=== PATIENT | male | born 1950 | race Caucasian/White ===

== ENCOUNTER 2019-02-23 12:32 | Outpatient (CLI) | payer MEDICARE ==
[2019-02-23 14:46] LABS: #Basophils 0.1 thou/uL (0.0-0.2); #Eosinphils 0.1 thou/uL (0.0-0.7); #Lymphocytes 2.5 thou/uL (1.20-3.40); #Monocytes 0.8 thou/uL (0.11-0.59); #Neutrophils 4.2 thou/uL (1.40-6.50); %Basophils 1.6 % (0.0-1.0); %Eosinophils 1.9 % (0.0-10.0); %Lymphocytes 32.3 % (21.0-51.0); %Monocytes 10.2 % (0.0-10.0); %Neutrophils 54.1 % (42.0-75.0); Mean Corpuscular HGB CONC 32.2 g/dL (32.0-36.0); Mean Corpuscular Hemoglobin 30.7 pg (27.0-31.0); Mean Corpuscular Volume 95.4 fL (78.0-98.0); Mean Platelet Volume 7.4 fL (7.4-10.4); Platelet Count 304 thou/uL (130-400); RBC Distribution Width 12.4 % (11.5-14.5); Red Blood Cell (RBC) Count 4.55 mill/uL (4.70-6.10); White Blood Cell (WBC) Count 7.7 thou/uL (4.8-10.8)
[2019-02-23 15:01] LABS: Prothrombin Time 13.4 SEC (12.0-14.7)
[2019-02-23 15:12] LABS: Anion Gap 13 mmol/L (10-20); BUN (Urea Nitrogen) 15 mg/dL (8.4-25.7); Calc. Creatinine Clearance 0 mL/min (70-130); Calcium 9.5 mg/dL (7.8-10.44); Carbon Dioxide 25 mmol/L (23-31); Chloride 105 mmol/L (98-107); Estimated GFR-MDRD 68; Glucose 78 mg/dL (80-115); Potassium 3.8 mmol/L (3.5-5.1); Sodium 139 mmol/L (136-145)
[2019-02-23 17:41] LABS: Bacteria/HPF None Seen HPF (None Seen); Bilirubin Negative (Negative); Blood, Urine Negative (Negative); Clarity Clear (Clear); Glucose, Urine (Dipstick) Normal (Negative); Leukocyte Negative Leu/uL (Negative); Nitrite Negative (Negative); Protein, Urine (Dipstick) Negative (Neg-Trace); RBC/HPF 0-3 HPF (0-3); Squamous Epithelial None Seen HPF (0-3); Urobilinogen Normal mg/dL (Less than 2); WBC/HPF 0-3 HPF (0-3)
== END 2019-02-23 12:33 | disposition home or self-care (01) ==
LOC: LABBT 12:32
PROVIDERS: ATTEND Orthopaedic Surgery
DX: Z01.818 Encounter for other preprocedural examination (principal); M16.11 Unilateral primary osteoarthritis, right hip
CPT/HCPCS: 80048; 81001; 85025; 85610; 87081; 93005; 93010

== ENCOUNTER 2019-02-23 13:15 | Inpatient (IN) | payer MEDICARE ==
[2019-02-28] MEDS ORDERED: Bupivacaine HCl 0.5%/Epinephrine 1:200,000/PF 30 ml Vial ONE (09:47)
[2019-02-28] MEDS ORDERED: Tranexamic Acid 1,000 MG/10 ML VIAL ONE (10:00)
[2019-02-28] MEDS ORDERED: Sodium Chloride 0.9% 100 ML ONE (10:00)
[2019-02-28] MEDS ORDERED: PROPOFOL 200 MG/20 ML VIAL ONE (10:35)
[2019-02-28] MEDS ORDERED: Ondansetron PF 4 MG/2 ML Vial ONE (10:35)
[2019-02-28] MEDS ORDERED: Rocuronium Bromide 10 MG/ML (10ML VIAL) ONE (10:35)
[2019-02-28] MEDS ORDERED: Lidocaine 1% PF 5 ML VIAL ONE (10:35)
[2019-02-28] MEDS ORDERED: Glycopyrrolate 0.2 MG/ML 5 ML SYRINGE ONE (10:35)
[2019-02-28] MEDS ORDERED: Midazolam HCl 2 mg/2 ml Vial ONE (10:46)
[2019-02-28] MEDS ORDERED: Fentanyl 100 MCG/2 ML VIAL ONE ×4 (10:46→15:46)
[2019-02-28] MEDS ORDERED: Dexamethasone 4 mg/ml Vial ONE (10:47)
[2019-02-28] MEDS ORDERED: diphenhydrAMINE 25 MG CAP PO PRN ×2 (12:53→15:55)
[2019-02-28] MEDS ORDERED: Ondansetron PF 4 MG/2 ML Vial IVP PRN ×2 (12:53→15:55)
[2019-02-28] MEDS ORDERED: Promethazine HCl 25 MG/ML VIAL IM PRN ×3 (12:53→15:55)
[2019-02-28] MEDS ORDERED: Acetaminophen 325 MG TAB PO PRN (12:53)
[2019-02-28] MEDS ORDERED: Zolpidem Tartrate 5 MG TAB PO PRN ×2 (12:53→15:55)
[2019-02-28] MEDS ORDERED: HYDROcodone/Acetaminophen 10/325 mg Tablet PO PRN ×2 (12:53)
[2019-02-28] MEDS ORDERED: Ondansetron HCl/PF 4 MG/2 ML Vial IVP PRN (15:01)
[2019-02-28] MEDS ORDERED: Promethazine HCl 25 MG/ML VIAL SLOW IVP PRN (15:01)
[2019-02-28] MEDS ORDERED: HYDROmorphone 2 MG/ML VIAL ONE (15:09)
--- NOTE | 2019-02-28 15:39 | OP ---
DATE OF PROCEDURE: 02/28/2019 PREOPERATIVE DIAGNOSIS: End-stage bicompartmental osteoarthritis, right hip. POSTOPERATIVE DIAGNOSIS: End-stage bicompartmental osteoarthritis, right hip. OPERATIVE PROCEDURE: Press-fit right total hip arthroplasty. SURGEON: Deandre Sterling MD DIRECTOR OF SPECIAL SERVICES: Enrico Hanson PA-C. ANESTHESIA: General via endotracheal tube, augmented with a peripheral fascia iliaca block. COMPONENTS USED: [facility] Accolade II size 7 press-fit hip stem with a titanium hemispherical cluster hole press-fit 56 mm acetabular shell, 10 degree polyethylene fixed bearing insert. A ceramic 36 mm femoral head with a -2.5 neck length. ESTIMATED BLOOD LOSS: 150 mL. FINDINGS: Severe degenerative bicompartmental disease, [id number]-ci-[id number] arthrosis, periarticular osteophyte formation, large serous effusion, hypertrophic synovium, hemarthrosis. DRAINS: None. COMPLICATIONS: None. COUNTS: Correct. SPECIMENS: None. INDICATION FOR SURGERY: Asaf is a 68-year-old white male who has had progressive right hip, groin, thigh pain and problems with standing, walking for the last five to seven years. He has failed conservative management and elected to proceed with total hip arthroplasty as definitive treatment for his pain. INPUT: 1500 crystalloid. OUTPUT: Not measured. No Wise placed. PROCEDURE IN DETAIL: After informed consent was obtained in the preoperative holding area, the patient was taken to the operative suite where general anesthesia was induced. The patient was then positioned in the lateral decubitus position. The hip was then prepped and draped in usual sterile fashion. The patient received preoperative antibiotics. Prior to incision, time-out was called and all members of the surgical team agreed upon site, surgeon, and patient. After this, a longitudinal incision was made directly over the trochanter, noted by palpation extending 2 fingerbreadths above and below the trochanter. The deeper subcutaneous layer was undermined with Bovie electrocautery. The iliotibial band was encountered and incised sharply and the plane below this was developed bluntly. A Charnley retractor was placed to hold this opened. The lateral aspect of the trochanter and the abductor muscles were encountered and then reflected anteriorly off the trochanter using Bovie electrocautery. Once this was completed, the anterior capsule was then encountered and identified and copious capsulotomy was carried out, exposing the femoral neck and head. Dislocation maneuver was then performed and an in situ provisional neck cut was then made using the oscillating saw. Attention was then turned to acetabular preparation and sequential reaming was carried out up to the appropriate diameter. A trial was then malleted into place with good firm resistance and no pullout. The permanent acetabular shell was then malleted squarely into place, as was the appropriate liner. Once completed, the wound was copiously irrigated and attention was then turned to femoral preparation. Flexion and external rotation were performed of the exposed thigh and femoral elevators were then placed at the proximal aspect of the wound. Canal finder was used to establish the length of the canal and sequential reaming was carried out, followed by broaching. Once the appropriate stability was established with the trial broaches with flexion, extension and rotational stability, we did trial with neutral and 2 mm offset incremental necks. Once the appropriate size was decided upon, with good stability noted with flexion, extension, internal and external rotation and shuck being negative, we removed the femoral trial broach and malletted into place the permanent prosthesis with good firm fit, which was also stable to rotation. Again, the hip felt very stable to flexion, extension, internal and external rotation. Leg lengths appeared near anatomic clinically and we were quite happy with prosthesis placement. Copious irrigation was then carried out through the entirety of the wound. Primary closure of the abductors was accomplished with interrupted #2 Vicryl [id number] stitches and the IT band was then closed with interrupted #2 Vicryl, oversewn with a #2 running barbed Quill stitch. Subcutaneous fascia was closed with running barbed Quill stitch and a subcuticular Monocryl barbed Quill stitch was used for skin closure and augmented with skin cement. A sterile dressing was applied. The procedure was terminated without any complication. All counts were correct. The patient was awakened in the operative suite and taken to the recovery room in stable condition. Job ID: [id number]
[2019-02-28] MEDS ORDERED: Naloxone HCl 0.4 mg/ml Vial IV PRN (15:55)
[2019-02-28] MEDS ORDERED: Morphine Sulfate 100 MG in Dextrose 5% in Water 98 ML IV SCH (15:55)
[2019-02-28] MEDS ORDERED: diphenhydrAMINE 50 MG/ML VIAL IM/IV PRN (15:55)
--- NOTE | 2019-02-28 17:46 | RAD ---
EXAM: XR Hip Rt 2-3 View PROVIDED CLINICAL HISTORY: Postop COMPARISON: 08/20/2018 FINDINGS: Interval postoperative changes of right hip arthroplasty. No evidence for an acute osseous abnormalit y. Postoperative soft tissue gas. IMPRESSION: As above.
[2019-02-28] MEDS: CEFAZOLIN 2 GM in Premix Bag 1 BAG IVPB SCH (20:04)
[2019-02-28] MEDS: Ferrous Gluconate 324 MG TAB PO SCH (20:04)
[2019-02-28] MEDS: Aspirin 81 mg Enteric Coated Tablet PO SCH (20:05)
[2019-02-28 22:24] VITALS: BMI 25.4
[2019-02-28] MEDS: Sodium Chloride 0.9% 1,000 ML IV SCH (23:50)
[2019-02-28] MEDS: Senokot S 8.6-50 MG TAB PO SCH (23:50)
[2019-03-01] MEDS: CEFAZOLIN 2 GM in Premix Bag 1 BAG IVPB SCH (01:18)
[2019-03-01] MEDS: Sodium Chloride 0.9% 1,000 ML IV SCH ×2 (01:18→10:52)
[2019-03-01] MEDS ORDERED: Tamsulosin HCl 0.4 MG CAP PO SCH (04:30)
[2019-03-01 06:53] LABS: Hemoglobin 11.4 g/dL (14.0-18.0); Mean Corpuscular HGB CONC 31.4 g/dL (32.0-36.0); Mean Corpuscular Hemoglobin 29.8 pg (27.0-31.0); Mean Corpuscular Volume 94.9 fL (78.0-98.0); Mean Platelet Volume 7.4 fL (7.4-10.4); Platelet Count 230 thou/uL (130-400); RBC Distribution Width 12.2 % (11.5-14.5); Red Blood Cell (RBC) Count 3.81 mill/uL (4.70-6.10); White Blood Cell (WBC) Count 11.5 thou/uL (4.8-10.8)
[2019-03-01] MEDS: Aspirin 81 mg Enteric Coated Tablet PO SCH ×2 (08:11→22:27)
[2019-03-01] MEDS: Multivitamin W/ Minerals 1 TAB PO SCH (08:11)
[2019-03-01] MEDS: Senokot S 8.6-50 MG TAB PO SCH ×2 (08:12→22:27)
[2019-03-01] MEDS: Ferrous Gluconate 324 MG TAB PO SCH ×2 (08:12→22:27)
[2019-03-01] MEDS: Tamsulosin HCl 0.4 MG CAP PO SCH (10:53)
--- NOTE | 2019-03-01 16:27 | PRG ---
DATE OF SERVICE: 03/01/2019 SUBJECTIVE: Asaf is a 68-year-old white male, who is postoperative day 1 from right total hip arthroplasty. He is doing very well this morning. He has good spirits and has his pain under control. OBJECTIVE: VITAL SIGNS: Stable. He is afebrile. GENERAL: He is alert and oriented to person, place, time, and situation and grossly nonfocal. EXTREMITIES: He is neurovascularly intact in the right lower extremity. There is no malrotation or shortening. His incision is clean and closed without any erythema. LABORATORY DATA: Hemoglobin and hematocrit 11 and 36. IMPRESSION: A 68-year-old white male, postoperative day 1, right total hip arthroplasty, doing well. PLAN: Continue current care. Discharge tomorrow. Job ID: [id number]
[2019-03-02] MEDS: Sodium Chloride 0.9% 1,000 ML IV SCH ×3 (04:38→15:09)
[2019-03-02 06:38] LABS: Hemoglobin 10.9 g/dL (14.0-18.0); Mean Corpuscular HGB CONC 30.4 g/dL (32.0-36.0); Mean Corpuscular Hemoglobin 28.9 pg (27.0-31.0); Mean Corpuscular Volume 94.9 fL (78.0-98.0); Mean Platelet Volume 7.9 fL (7.4-10.4); Platelet Count 216 thou/uL (130-400); RBC Distribution Width 12.2 % (11.5-14.5); Red Blood Cell (RBC) Count 3.79 mill/uL (4.70-6.10); White Blood Cell (WBC) Count 11.3 thou/uL (4.8-10.8)
[2019-03-02] MEDS: Senokot S 8.6-50 MG TAB PO SCH ×3 (08:49→21:12)
[2019-03-02] MEDS: Aspirin 81 mg Enteric Coated Tablet PO SCH ×2 (08:50→21:08)
[2019-03-02] MEDS: Ferrous Gluconate 324 MG TAB PO SCH ×2 (08:50→21:08)
[2019-03-02] MEDS: Multivitamin W/ Minerals 1 TAB PO SCH (08:50)
[2019-03-02] MEDS: Tamsulosin HCl 0.4 MG CAP PO SCH (08:50)
[2019-03-02] MEDS ORDERED: HYDROcodone/Acetaminophen 10/325 mg Tablet PO PRN (12:11)
[2019-03-02] MEDS ORDERED: Fentanyl 100 MCG/2 ML VIAL SLOW IVP PRN (12:11)
[2019-03-02] MEDS: HYDROcodone/Acetaminophen 10/325 mg Tablet PO PRN ×2 (12:18→21:14)
[2019-03-03] MEDS: Sodium Chloride 0.9% 1,000 ML IV SCH (01:20)
[2019-03-03] MEDS: HYDROcodone/Acetaminophen 10/325 mg Tablet PO PRN (05:15)
[2019-03-03 05:29] LABS: Hemoglobin 10.2 g/dL (14.0-18.0); Mean Corpuscular Hemoglobin 29.2 pg (27.0-31.0); Mean Corpuscular Volume 94.3 fL (78.0-98.0); Mean Platelet Volume 7.9 fL (7.4-10.4); Platelet Count 190 thou/uL (130-400); RBC Distribution Width 12.2 % (11.5-14.5); White Blood Cell (WBC) Count 8.8 thou/uL (4.8-10.8)
[2019-03-03] MEDS: Multivitamin W/ Minerals 1 TAB PO SCH (08:38)
[2019-03-03] MEDS: Senokot S 8.6-50 MG TAB PO SCH (08:38)
[2019-03-03] MEDS: Ferrous Gluconate 324 MG TAB PO SCH (08:38)
[2019-03-03] MEDS: Tamsulosin HCl 0.4 MG CAP PO SCH (08:38)
[2019-03-03] MEDS: Aspirin 81 mg Enteric Coated Tablet PO SCH (08:38)
[2019-03-03 11:08] VITALS: BP 121/78; TEMP 98.6
== END 2019-03-03 12:42 | disposition home or self-care (01) | DRG 470 ==
LOC: SURG A 02-28 09:42 → SJJU 02-28 17:01
PROVIDERS: ADMIT Orthopaedic Surgery; ATTEND Orthopaedic Surgery
PROC: 0SR904A Replacement of Right Hip Joint with Ceramic on Polyethylene Synthetic Substitute, Uncemented, Open Approach (ICD-10-PCS; principal; 2019-02-28)
DX: M16.11 Unilateral primary osteoarthritis, right hip (principal)
CPT/HCPCS: 36415; 85027; J0670; J0690; J1100; J1170; J2001; J2250; J2274; J2405; J2704; J3010; J3370; J3490; J7070

== ENCOUNTER 2023-08-26 12:58 | Outpatient (CLI) | payer MEDICARE, OTHER ==
[2023-08-26 15:29] LABS: #Basophils 0.1 10x3/uL (0.0-0.2); #Eosinphils 0.2 10x3/uL (0.0-0.5); #Monocytes 0.9 10x3/uL (0.0-1.1); %Basophils 0.7 % (0.0-2.0); %Eosinophils 2.7 % (0.0-6.0); %Lymphocytes 26.8 % (18.0-47.0); %Neutrophils 58.4 % (40.0-75.0); Hematocrit 44.6 % (38.8-50.0); Hemoglobin 14.7 g/dL (13.5-17.5); Mean Corpuscular Hemoglobin 31.1 pg (27.0-33.0); Mean Corpuscular Volume 94.3 fl (81.2-95.1); Mean Platelet Volume 10.1 fl (7.4-10.4); Platelet Count 329 10x3/uL (150-450); Red Blood Cell (RBC) Count 4.73 10x6/uL (4.32-5.72); White Blood Cell (WBC) Count 8.6 10x3/uL (3.5-10.5)
[2023-08-26 15:57] LABS: Anion Gap 18 mmol/L (10-20); BUN (Urea Nitrogen) 19 mg/dL (8.4-25.7); Calc. Creatinine Clearance 0 mL/min (70-130); Calcium 9.1 mg/dL (7.8-10.44); Carbon Dioxide 22 mmol/L (23-31); Chloride 109 mmol/L (98-107); Estimated GFR 47; Glucose 91 mg/dL (83-110); Potassium 4.6 mmol/L (3.5-5.1); Sodium 144 mmol/L (136-145)
[2023-08-26 16:40] LABS: Prothrombin Time 10.5 sec (9.5-12.1)
== END 2023-08-26 12:59 | disposition home or self-care (01) ==
LOC: LABBT 12:58
PROVIDERS: ATTEND Orthopaedic Surgery
DX: Z01.818 Encounter for other preprocedural examination (principal); M16.12 Unilateral primary osteoarthritis, left hip; Z86.39 Personal history of other endocrine, nutritional and metabolic disease
CPT/HCPCS: 80048; 85025; 85610; 87081; 93005; 93010

== ENCOUNTER 2023-08-31 05:40 | Observation (INO) | payer MEDICARE, OTHER ==
[2023-08-26 14:00] VITALS: BMI 25.9
[2023-08-31] MEDS ORDERED: Sodium Chloride 0.9% 100 ML ONE ×2 (05:50→06:59)
[2023-08-31] MEDS ORDERED: Vancomycin (BATCH) 1.5 GM/300 ML BAG ONE (05:50)
[2023-08-31] MEDS ORDERED: Tranexamic Acid 1,000 MG/10 ML VIAL ONE (05:50)
[2023-08-31] MEDS ORDERED: Bupivacaine PF 0.5% 30 ML VIAL ONE ×2 (06:24→07:22)
[2023-08-31] MEDS ORDERED: fentaNYL 50 mcg/mL 1 mL Vial ONE (06:25)
[2023-08-31] MEDS ORDERED: Midazolam HCl 2 mg/2 ml Vial ONE ×2 (06:47→07:17)
[2023-08-31] MEDS ORDERED: Ondansetron PF 4 MG/2 ML Vial IVP PRN (06:58)
[2023-08-31] MEDS ORDERED: Acetaminophen 325 MG TAB PO PRN (06:58)
[2023-08-31] MEDS ORDERED: diphenhydrAMINE 25 MG CAP PO PRN (06:58)
[2023-08-31] MEDS ORDERED: fentaNYL 50 mcg/mL 1 mL Vial SLOW IVP PRN ×2 (06:58)
[2023-08-31] MEDS ORDERED: HYDROcodone/Acetaminophen 10/325 mg Tablet PO PRN (06:58)
[2023-08-31] MEDS ORDERED: Promethazine HCl 25 MG/ML VIAL IM PRN (06:58)
[2023-08-31] MEDS ORDERED: Zolpidem Tartrate 5 MG TAB PO PRN (06:58)
[2023-08-31] MEDS ORDERED: CEFAZOLIN 2 GM VIAL ONE (06:59)
[2023-08-31] MEDS ORDERED: Bupivacaine HCl 0.5%/Epinephrine 1:200,000/PF 30 ml Vial ONE (07:00)
[2023-08-31] MEDS ORDERED: PROPOFOL 20 ML ONE ×3 (07:22→08:27)
[2023-08-31] MEDS ORDERED: PHENYLEPHRINE-NS 100 MCG/ML 10 ML SYRINGE ONE (07:50)
[2023-08-31] MEDS ORDERED: HYDROmorphone 2 MG/ML VIAL SLOW IVP PRN (08:40)
[2023-08-31] MEDS ORDERED: Ondansetron HCl/PF 4 MG/2 ML Vial IVP PRN (08:40)
[2023-08-31] MEDS: Aspirin 81 mg Enteric Coated Tablet PO SCH ×2 (10:31→21:16)
[2023-08-31] MEDS: Lisinopril 20 MG TAB PO SCH (10:31)
[2023-08-31] MEDS: Sodium Chloride 0.9% 1,000 ML IV SCH ×2 (10:31→16:20)
[2023-08-31] MEDS: HYDROcodone/Acetaminophen 10/325 mg Tablet PO PRN ×2 (12:50→21:19)
[2023-08-31] MEDS: Ketorolac Tromethamine 30 MG (1 mL) VIAL IVP SCH ×2 (12:50→21:17)
[2023-08-31] MEDS: CEFAZOLIN 2 GM in Sodium Chloride 0.9% 100 ML IVPB SCH ×2 (15:32→23:59)
[2023-09-01] MEDS: Sodium Chloride 0.9% 1,000 ML IV SCH ×3 (01:26→20:57)
[2023-09-01 04:52] LABS: Hemoglobin 11.8 g/dL (14.0-18.0); Mean Corpuscular HGB CONC 33.7 g/dL (32.0-36.0); Mean Corpuscular Hemoglobin 31.4 pg (27.0-31.0); Mean Corpuscular Volume 93.1 fl (78.0-98.0); Mean Platelet Volume 9.8 fL (7.4-10.4); Platelet Count 251 10x3/uL (130-400); RBC Distribution Width 13.7 % (11.5-14.5); Red Blood Cell (RBC) Count 3.76 mill/uL (4.70-6.10); White Blood Cell (WBC) Count 9.6 10x3/uL (4.8-10.8)
[2023-09-01] MEDS: Ketorolac Tromethamine 30 MG (1 mL) VIAL IVP SCH ×3 (05:08→20:57)
[2023-09-01] MEDS: HYDROcodone/Acetaminophen 10/325 mg Tablet PO PRN ×2 (05:08→16:20)
[2023-09-01] MEDS: Senokot S 8.6-50 MG TAB PO SCH ×2 (08:45→20:57)
[2023-09-01] MEDS: Lisinopril 20 MG TAB PO SCH (08:46)
[2023-09-01] MEDS: Aspirin 81 mg Enteric Coated Tablet PO SCH ×2 (08:46→20:56)
[2023-09-01] MEDS: Ferrous Gluconate 324 MG TAB PO SCH ×2 (08:46→17:58)
[2023-09-01] MEDS: Multivitamin W/ Minerals 1 TAB PO SCH (08:46)
[2023-09-02] MEDS: HYDROcodone/Acetaminophen 10/325 mg Tablet PO PRN ×2 (01:59→09:12)
[2023-09-02] MEDS: Ketorolac Tromethamine 30 MG (1 mL) VIAL IVP SCH (05:22)
[2023-09-02] MEDS: Aspirin 81 mg Enteric Coated Tablet PO SCH (07:51)
[2023-09-02] MEDS: Lisinopril 20 MG TAB PO SCH (07:51)
[2023-09-02 07:52] VITALS: BP 151/82
[2023-09-02] MEDS: Ferrous Gluconate 324 MG TAB PO SCH (07:52)
[2023-09-02] MEDS: Multivitamin W/ Minerals 1 TAB PO SCH (07:52)
[2023-09-02] MEDS: Senokot S 8.6-50 MG TAB PO SCH (07:52)
[2023-09-02] MEDS: Sodium Chloride 0.9% 1,000 ML IV SCH (08:09)
[2023-09-02 08:49] VITALS: TEMP 98
== END 2023-09-02 10:48 | disposition home or self-care (01) ==
LOC: SDC 05:40 → SURG B 06:58
PROVIDERS: ADMIT Orthopaedic Surgery; ATTEND Orthopaedic Surgery
PROC: 0SRB0JZ Replacement of Left Hip Joint with Synthetic Substitute, Open Approach (ICD-10-PCS; principal; 2023-08-31)
DX: M16.12 Unilateral primary osteoarthritis, left hip (principal); M10.9 Gout, unspecified; Z90.89 Acquired absence of other organs; Z96.641 Presence of right artificial hip joint; Z98.890 Other specified postprocedural states; Z79.899 Other long term (current) drug therapy
CPT/HCPCS: 27130; 73502; 85027; 97110; 97116 ×3; 97530 ×2; 97535; C1776; J3010; J3370; 36415; J1885; J2250; J2704; J3490; S0020

== ENCOUNTER 2023-09-08 12:49 | Emergency (ER) | payer MEDICARE, OTHER ==
[2023-09-08] MEDS ORDERED: Sodium Chloride 0.9% 100 ML ONE (13:46)
[2023-09-08] MEDS ORDERED: cefTRIAXone (ROCEPHIN) 2 GM VIAL ONE (13:46)
[2023-09-08 14:02] LABS: #Eosinphils 0.6 thou/uL (0.0-0.7); #Neutrophils 7.8 thou/uL (1.40-6.50); %Basophils 0.3 % (0.0-1.0); %Monocytes 8.2 % (0.0-10.0); %Neutrophils 67.3 % (42.0-75.0); Hemoglobin 12.3 g/dL (14.0-18.0); Mean Corpuscular HGB CONC 32.4 g/dL (32.0-36.0); Mean Corpuscular Hemoglobin 30.2 pg (27.0-31.0); Mean Corpuscular Volume 93.4 fl (78.0-98.0); Mean Platelet Volume 9.4 fL (7.4-10.4); Platelet Count 564 10x3/uL (130-400); RBC Distribution Width 13.9 % (11.5-14.5); Red Blood Cell (RBC) Count 4.07 mill/uL (4.70-6.10); White Blood Cell (WBC) Count 11.6 10x3/uL (4.8-10.8)
[2023-09-08] MEDS ORDERED: Vancomycin 1 GM/200 ML (FROZEN) BAG ONE (14:19)
[2023-09-08 14:20] LABS: ALT (SGPT) 27 U/L (8-55); AST (SGOT) 28 U/L (5-34); Albumin 4.1 g/dL (3.4-4.8); Alkaline Phosphatase 124 U/L (40-110); Anion Gap 13 mmol/L (10-20); BUN (Urea Nitrogen) 18 mg/dL (8.4-25.7); Bilirubin, Total 0.9 mg/dL (0.2-1.2); Calc. Creatinine Clearance 0 mL/min (70-130); Calcium 9.1 mg/dL (7.8-10.44); Carbon Dioxide 21 mmol/L (23-31); Chloride 107 mmol/L (98-107); Estimated GFR 44; Globulin 3.7 g/dL (2.4-3.5); Glucose 95 mg/dL (83-110); Potassium 4.1 mmol/L (3.5-5.1); Protein, Total 7.8 g/dL (5.8-8.1); Sodium 137 mmol/L (136-145)
== END 2023-09-08 15:42 | disposition home or self-care (01) ==
LOC: ERS 12:49
DX: L03.116 Cellulitis of left lower limb (principal); I10 Essential (primary) hypertension; Z79.82 Long term (current) use of aspirin; Z79.899 Other long term (current) drug therapy
CPT/HCPCS: 73502; 80053; 83605; 85025; 87040; J3370; 96365; 96367; J0696; J3490

== ENCOUNTER 2023-09-10 13:28 | Inpatient (IN) | payer MEDICARE, OTHER ==
[2023-09-10 13:56] LABS: #Basophils 0.1 thou/uL (0.0-0.2); #Eosinphils 0.6 thou/uL (0.0-0.7); #Monocytes 0.9 thou/uL (0.11-0.59); #Neutrophils 8.1 thou/uL (1.40-6.50); %Basophils 0.4 % (0.0-1.0); %Eosinophils 5.2 % (0.0-10.0); %Lymphocytes 17.6 % (21.0-51.0); %Monocytes 7.5 % (0.0-10.0); %Neutrophils 68.1 % (42.0-75.0); Hematocrit 37.2 % (42.0-52.0); Hemoglobin 11.8 g/dL (14.0-18.0); Mean Corpuscular HGB CONC 31.7 g/dL (32.0-36.0); Mean Corpuscular Hemoglobin 30.6 pg (27.0-31.0); Mean Corpuscular Volume 96.4 fl (78.0-98.0); Mean Platelet Volume 9.3 fL (7.4-10.4); Platelet Count 601 10x3/uL (130-400); RBC Distribution Width 14.2 % (11.5-14.5); Red Blood Cell (RBC) Count 3.86 mill/uL (4.70-6.10)
[2023-09-10 14:16] LABS: ALT (SGPT) 23 U/L (8-55); AST (SGOT) 24 U/L (5-34); Albumin 4.1 g/dL (3.4-4.8); Alkaline Phosphatase 127 U/L (40-110); Anion Gap 12 mmol/L (10-20); BUN (Urea Nitrogen) 18 mg/dL (8.4-25.7); Bilirubin, Total 0.7 mg/dL (0.2-1.2); Calc. Creatinine Clearance 0 mL/min (70-130); Calcium 9.1 mg/dL (7.8-10.44); Carbon Dioxide 23 mmol/L (23-31); Chloride 108 mmol/L (98-107); Estimated GFR 48; Globulin 3.5 g/dL (2.4-3.5); Glucose 96 mg/dL (83-110); Potassium 4.4 mmol/L (3.5-5.1); Protein, Total 7.6 g/dL (5.8-8.1); Sodium 139 mmol/L (136-145)
[2023-09-10] MEDS ORDERED: Cefepime 2 GM VIAL ONE (16:03)
[2023-09-10] MEDS ORDERED: Sodium Chloride 0.9% 100 ML ONE (16:03)
[2023-09-10] MEDS ORDERED: Vancomycin (BATCH) 1.5 GM in Premix 1 BAG IVPB SCH (16:30)
[2023-09-10 18:17] VITALS: BMI 25.6
[2023-09-10] MEDS ORDERED: Acetaminophen 325 MG TAB PO PRN (18:30)
[2023-09-10] MEDS ORDERED: Ondansetron PF 4 MG/2 ML Vial IVP PRN (18:30)
[2023-09-10] MEDS ORDERED: Ondansetron ODT 4 MG TAB SL PRN (18:30)
[2023-09-10] MEDS ORDERED: Sodium Chloride 0.9% 1,000 ML IV SCH (18:30)
[2023-09-11] MEDS ORDERED: Ondansetron ODT 4 MG TAB SL PRN (08:16)
[2023-09-11] MEDS ORDERED: HYDROcodone/Acetaminophen 10/325 mg Tablet PO PRN ×2 (08:17)
[2023-09-11] MEDS ORDERED: hydrOXYzine Pamoate 25 mg Capsule PO SCH (09:15)
[2023-09-11] MEDS: Lisinopril 20 MG TAB PO SCH (10:12)
[2023-09-11] MEDS: Aspirin 81 mg Enteric Coated Tablet PO SCH ×2 (10:12→19:54)
[2023-09-11] MEDS: Vancomycin 1 GM in Premix 1 BAG IVPB SCH ×2 (10:12→20:37)
[2023-09-11 11:42] LABS: #Eosinphils 0.5 thou/uL (0.0-0.7); #Monocytes 0.8 thou/uL (0.11-0.59); #Neutrophils 5.6 thou/uL (1.40-6.50); %Basophils 0.2 % (0.0-1.0); %Eosinophils 6.5 % (0.0-10.0); %Lymphocytes 14.3 % (21.0-51.0); %Monocytes 9.6 % (0.0-10.0); %Neutrophils 68.3 % (42.0-75.0); Hematocrit 32.1 % (42.0-52.0); Hemoglobin 10.4 g/dL (14.0-18.0); Mean Corpuscular HGB CONC 32.4 g/dL (32.0-36.0); Mean Corpuscular Hemoglobin 30.8 pg (27.0-31.0); Mean Platelet Volume 9.4 fL (7.4-10.4); Platelet Count 507 10x3/uL (130-400); RBC Distribution Width 14.2 % (11.5-14.5); Red Blood Cell (RBC) Count 3.38 mill/uL (4.70-6.10); White Blood Cell (WBC) Count 8.3 10x3/uL (4.8-10.8)
[2023-09-11] MEDS: CEFAZOLIN 2 GM in Sodium Chloride 0.9% 100 ML IVPB SCH ×2 (12:02→20:37)
[2023-09-12] MEDS: Vancomycin 1 GM in Premix 1 BAG IVPB SCH ×2 (08:30→20:43)
[2023-09-12] MEDS: Lisinopril 20 MG TAB PO SCH (08:30)
[2023-09-12] MEDS: Aspirin 81 mg Enteric Coated Tablet PO SCH ×2 (08:30→20:43)
[2023-09-12 08:41] LABS: #Eosinphils 0.5 thou/uL (0.0-0.7); #Monocytes 0.6 thou/uL (0.11-0.59); %Basophils 0.5 % (0.0-1.0); %Lymphocytes 19.9 % (21.0-51.0); %Monocytes 7.8 % (0.0-10.0); %Neutrophils 64.3 % (42.0-75.0); Hematocrit 34.1 % (42.0-52.0); Mean Corpuscular HGB CONC 32.3 g/dL (32.0-36.0); Mean Corpuscular Hemoglobin 30.3 pg (27.0-31.0); Mean Corpuscular Volume 93.9 fl (78.0-98.0); Mean Platelet Volume 9.3 fL (7.4-10.4); Platelet Count 508 10x3/uL (130-400); RBC Distribution Width 14.3 % (11.5-14.5); Red Blood Cell (RBC) Count 3.63 mill/uL (4.70-6.10); White Blood Cell (WBC) Count 7.7 10x3/uL (4.8-10.8)
[2023-09-12] MEDS: CEFAZOLIN 2 GM in Sodium Chloride 0.9% 100 ML IVPB SCH ×2 (10:30→20:44)
[2023-09-12] MEDS: Diphenoxylate HCl/Atropine Tablet PO PRN (10:30)
[2023-09-13] MEDS: Lisinopril 20 MG TAB PO SCH (09:09)
[2023-09-13] MEDS: Aspirin 81 mg Enteric Coated Tablet PO SCH ×2 (09:09→19:58)
[2023-09-13] MEDS: Diphenoxylate HCl/Atropine Tablet PO PRN (09:12)
[2023-09-13] MEDS: Vancomycin 1 GM in Premix 1 BAG IVPB SCH ×2 (10:14→19:59)
[2023-09-13] MEDS: CEFAZOLIN 2 GM in Sodium Chloride 0.9% 100 ML IVPB SCH ×2 (12:02→22:14)
[2023-09-14] MEDS: Lisinopril 20 MG TAB PO SCH (09:12)
[2023-09-14] MEDS: Aspirin 81 mg Enteric Coated Tablet PO SCH ×2 (09:12→20:23)
[2023-09-14] MEDS: Vancomycin 1 GM in Premix 1 BAG IVPB SCH ×2 (09:12→20:23)
[2023-09-14] MEDS: CEFAZOLIN 2 GM in Sodium Chloride 0.9% 100 ML IVPB SCH ×2 (11:09→22:22)
[2023-09-15] MEDS: Vancomycin 1 GM in Premix 1 BAG IVPB SCH (08:51)
[2023-09-15] MEDS: CEFAZOLIN 2 GM in Sodium Chloride 0.9% 100 ML IVPB SCH (08:51)
[2023-09-15] MEDS: Lisinopril 20 MG TAB PO SCH (08:51)
[2023-09-15] MEDS: Aspirin 81 mg Enteric Coated Tablet PO SCH (08:52)
[2023-09-15 09:37] VITALS: BP 129/81; TEMP 98.3
[2023-09-15] MEDS ORDERED: Clindamycin 150 MG CAP PO SCH (14:00)
== END 2023-09-15 11:27 | disposition home or self-care (01) | DRG 921 ==
LOC: ERS 13:28 → SURG B 16:17 → OBSVTOIN 09-13 08:34
PROVIDERS: ADMIT Orthopaedic Surgery; ATTEND Orthopaedic Surgery
DX: M96.89 Other intraoperative and postprocedural complications and disorders of the musculoskeletal system (principal); I10 Essential (primary) hypertension; Z90.89 Acquired absence of other organs; Z96.643 Presence of artificial hip joint, bilateral; Z98.49 Cataract extraction status, unspecified eye; Z79.899 Other long term (current) drug therapy
CPT/HCPCS: 36415; 80053; 83605; 85025; 86140; 87040; 87070; 87205; 96365; 96366; 96367; 96375; 96376; G0378; J0692; J3370; J3370-JW; J3490; J7050; Q0177